=== PATIENT | male | born 1960 | race Caucasian/White ===

== ENCOUNTER 2017-02-26 15:27 | Inpatient (IN) | payer OTHER ==
[~2017-02-26] VITALS: Ht 172.7 cm; Wt 74.8 kg
[2017-02-26 15:42] LABS: HEMOGLOBIN 14.9 gm/dl (14.0-17.5); RED BLOOD COUNT 4.7 M/UL (4.20-5.50); WHITE BLOOD COUNT 20.4 K/UL (4.5-11.0)
[2017-02-26] MEDS ORDERED: GLUCOTROL 10 MG10 MG PO (17:43)
[2017-02-26] MEDS ORDERED: KLONOPIN TAB 00.5 MG PO (17:44)
[2017-02-26] MEDS ORDERED: PERCOCET 10-321 EACH PO (17:44)
[2017-02-26] MEDS ORDERED: VISTARIL 25 MG25 MG PO (17:45)
[2017-02-27 04:35] LABS: HEMOGLOBIN 13.7 gm/dl (14.0-17.5); RED BLOOD COUNT 4.38 M/UL (4.20-5.50)
[2017-02-27 05:13] LABS: BUN/CREATININE RATIO 21 (0-10)
[2017-02-27] MEDS ORDERED: ASPIRIN81 MG PO (12:06)
[2017-02-27] MEDS ORDERED: LISINOPRIL2.5 MG PO (12:07)
[2017-02-27] MEDS ORDERED: LOPRESSOR 25 MG25 MG PO (12:08)
[2017-02-27] MEDS ORDERED: BRILINTA 90 MG90 MG PO (12:12)
[2017-02-27] MEDS ORDERED: CRESTOR40 MG PO (12:12)
[2017-02-27] MEDS ORDERED: NITROSTAT0.4 MG SL (12:14)
== END 2017-02-27 13:45 | disposition home or self-care (01) | DRG 247 ==
LOC: ER1 15:27 → CCU 15:37 → ZEROF 15:37 → CCU 17:15
PROVIDERS: Emergency Medicine; ADMIT Internal Medicine
PROC: 027034Z Dilation of Coronary Artery, One Artery with Drug-eluting Intraluminal Device, Percutaneous Approach (ICD-10-PCS; principal; 2017-02-26)
PROC: 02C03ZZ Extirpation of Matter from Coronary Artery, One Artery, Percutaneous Approach (ICD-10-PCS; 2017-02-26)
PROC: 4A023N7 Measurement of Cardiac Sampling and Pressure, Left Heart, Percutaneous Approach (ICD-10-PCS; 2017-02-26)
PROC: B2111ZZ Fluoroscopy of Multiple Coronary Arteries using Low Osmolar Contrast (ICD-10-PCS; 2017-02-26)
DX: I21.19 ST elevation (STEMI) myocardial infarction involving other coronary artery of inferior wall (principal); I25.10 Atherosclerotic heart disease of native coronary artery without angina pectoris; E11.9 Type 2 diabetes mellitus without complications; I10 Essential (primary) hypertension; E78.5 Hyperlipidemia, unspecified; F17.200 Nicotine dependence, unspecified, uncomplicated; M54.9 Dorsalgia, unspecified; Z79.84 Long term (current) use of oral hypoglycemic drugs; Z79.891 Long term (current) use of opiate analgesic; Z79.899 Other long term (current) drug therapy; Z88.0 Allergy status to penicillin; Z98.890 Other specified postprocedural states
CPT/HCPCS: ECHO; 36415; 71010; 80048; 80053; 80061; 82550; 82553; 82962; 83036; 83874; 84484; 85025; 85027; 85347; 85610; 85730; 93005; 93306; 96374; 99285; C1725; C1757; C1769; C1874; C1887; C1894; C9600; J0461; J0583; J1644; J3010; J7040; Q0177; Q9965

== ENCOUNTER 2020-11-13 11:16 | Inpatient (IN) | payer OTHER ==
[~2020-11-13] VITALS: Ht 170.2 cm; Wt 65.8 kg
[~2020-11-13 11:16] MED LIST: ASPIRIN81 MG PO; BRILINTA 90 MG90 MG PO; CRESTOR40 MG PO; GLUCOTROL 10 MG10 MG PO; KLONOPIN TAB 00.5 MG PO; LISINOPRIL2.5 MG PO; LOPRESSOR 25 MG25 MG PO; NITROSTAT0.4 MG SL; PERCOCET 10-321 EACH PO; VISTARIL 50 MG50 MG PO
[2020-11-13 12:02] LABS: HEMOGLOBIN 13.8 gm/dl (14.0-17.5); RED BLOOD COUNT 4.7 M/UL (4.20-5.50)
[2020-11-13 12:34] LABS: BUN/CREATININE RATIO 22 (0-10)
[2020-11-13] MEDS ORDERED: ALL DAY ALLERGY10 M2 PO (19:46)
[2020-11-13] MEDS ORDERED: ABILIFY5 MG PO (19:46)
[2020-11-13] MEDS ORDERED: ZETIA10 MG PO (19:47)
[2020-11-13] MEDS ORDERED: GLYXAMBI 25 MG1 EACH PO (19:48)
[2020-11-13] MEDS ORDERED: FENOFIBRATE160 MG PO (19:48)
[2020-11-13] MEDS ORDERED: ACTOS45 MG PO (19:51)
[2020-11-13] MEDS ORDERED: FORTAMET500 MG PO (19:51)
[2020-11-13] MEDS ORDERED: ZOFRAN ODT 4 MG4 MG PO (19:54)
[2020-11-14 02:06] LABS: HEMOGLOBIN 12.7 gm/dl (14.0-17.5); RED BLOOD COUNT 4.27 M/UL (4.20-5.50); WHITE BLOOD COUNT 13.5 K/UL (4.5-11.0)
[2020-11-14 02:25] LABS: BUN/CREATININE RATIO 24 (0-10)
[2020-11-14 16:20] LABS: BUN/CREATININE RATIO 24 (0-10)
--- NOTE | 2020-11-15 00:44 | NUR ---
PER ORDERS, BLADDER SCANNED PT, FOUND 436 MLS IN BLADDER, PT REFUSED TO BE STRAIGHT CATHED, PER MD'S ORDERS. WILL SCAN AGAIN, WILL CONTINUE TO MONITOR
--- NOTE | 2020-11-15 05:36 | NUR ---
BLADDER SCANNED PT THIS MORNING, 430 MLS, PT AGAIN REFUSED TO LET US STRAIGHT CATH OR ANCHOR A LEPE
[2020-11-15 06:58] LABS: HEMOGLOBIN 14.4 gm/dl (14.0-17.5); RED BLOOD COUNT 4.68 M/UL (4.20-5.50); WHITE BLOOD COUNT 19.3 K/UL (4.5-11.0)
[2020-11-15 07:10] LABS: BUN/CREATININE RATIO 27 (0-10)
[2020-11-15 11:35] LABS: BUN/CREATININE RATIO 29 (0-10)
[2020-11-15 17:12] LABS: BUN/CREATININE RATIO 30 (0-10)
[2020-11-15 20:01] LABS: BUN/CREATININE RATIO 32 (0-10)
[2020-11-16 03:24] LABS: BUN/CREATININE RATIO 29 (0-10)
[2020-11-16 08:15] LABS: BUN/CREATININE RATIO 23 (0-10)
[2020-11-16 12:39] LABS: BUN/CREATININE RATIO 29 (0-10)
[2020-11-16 14:53] LABS: HEMOGLOBIN 12.9 gm/dl (14.0-17.5); RED BLOOD COUNT 4.19 M/UL (4.20-5.50); WHITE BLOOD COUNT 10.7 K/UL (4.5-11.0)
[2020-11-16 15:17] LABS: BUN/CREATININE RATIO 26 (0-10)
[2020-11-16 20:34] LABS: BUN/CREATININE RATIO 23 (0-10)
[2020-11-17 01:09] LABS: BUN/CREATININE RATIO 19 (0-10)
[2020-11-17 14:49] LABS: BUN/CREATININE RATIO 12 (0-10)
[2020-11-17] MEDS ORDERED: LOPRESSOR 25 MG25 MG PO (16:07)
[2020-11-17] MEDS ORDERED: LANTUS SOL100 UNIT/1 SQ (16:07)
[2020-11-17] MEDS ORDERED: PROTONIX40 MG PO (16:19)
== END 2020-11-17 14:39 | disposition home or self-care (01) | DRG 393 ==
LOC: ER1 11:16 → PROG CARE 18:26 → CDU 18:26 → PROG CARE 18:26 → CCU 11-15 11:33
PROVIDERS: Emergency Medicine; Physician Assistant Medical; Surgery; ADMIT Hospitalist
PROC: 8E0ZXY6 Isolation (ICD-10-PCS; 2020-11-15)
PROC: 0DB78ZX Excision of Stomach, Pylorus, Via Natural or Artificial Opening Endoscopic, Diagnostic (ICD-10-PCS; 2020-11-16)
PROC: 0DB38ZX Excision of Lower Esophagus, Via Natural or Artificial Opening Endoscopic, Diagnostic (ICD-10-PCS; 2020-11-16)
PROC: 0DB98ZX Excision of Duodenum, Via Natural or Artificial Opening Endoscopic, Diagnostic (ICD-10-PCS; principal; 2020-11-16 13:38)
DX: K55.9 Vascular disorder of intestine, unspecified (principal); E11.10 Type 2 diabetes mellitus with ketoacidosis without coma; I47.1 Supraventricular tachycardia; E87.2 Acidosis; N17.9 Acute kidney failure, unspecified; E87.3 Alkalosis; Z20.822 Contact with and (suspected) exposure to COVID-19; K29.70 Gastritis, unspecified, without bleeding; T39.015A Adverse effect of aspirin, initial encounter; K20.90 Esophagitis, unspecified without bleeding; G89.29 Other chronic pain; K29.80 Duodenitis without bleeding; E78.5 Hyperlipidemia, unspecified; E86.0 Dehydration; M54.9 Dorsalgia, unspecified; I25.10 Atherosclerotic heart disease of native coronary artery without angina pectoris; I10 Essential (primary) hypertension; Z95.5 Presence of coronary angioplasty implant and graft; Z88.0 Allergy status to penicillin; Z79.84 Long term (current) use of oral hypoglycemic drugs; Z79.82 Long term (current) use of aspirin; Z79.899 Other long term (current) drug therapy
CPT/HCPCS: 36415; 36600; 71045; 80048; 80053; 80076; 80307; 81001; 81003; 82436; 82550; 82553; 82803; 82962; 83605; 83690; 83735; 83874; 83880; 83930; 83935; 84133; 84300; 84439; 84443; 84484; 85025; 85027; 85379; 85610; 85730; 87040; 88342; 93005; 96372; 96374; 96375; 96376; 99285; C9113; G0378; J0153; J0171; J0692; J2250; J2405; J2550; J3010; J3480; J7030; J7070; J7120; J7121; Q9967; U0002